=== PATIENT | male | born 1940 | race Caucasian/White ===

== ENCOUNTER 2016-08-28 09:13 | Day surgery (SDC) | payer MEDICARE ==
[~2016-08-28] VITALS: Ht 180.3 cm; Wt 84.0 kg
[~2016-08-28 09:13] MED LIST: ATOR80TA73 PO; FLUT16SP NSEACH; LACTATED RINGERS 1,000 ML IV SCH; MELO15TA14 PO; METH2.5T PO; SODIUM CHLORIDE FLUSH 3 ML SYR IV PRN; TRAN2TAB2 PO
--- OUTSIDE RECORDS SUMMARY | 2016-08-28 09:16 | XMS REPORT | Continuity of Care Document ---
Author Author [facility] Organization [facility] Address Unknown Phone Unavailable Care Team Providers Care Special Education Resource Room Teacher Name Role Phone ConradGrant PCP [phone] Source Comments Some departments are not documenting in the electronic medical record. If you do not see the information that you expected, contact Release of Information in the Health Information Management department at [phone] for further assistance in locating additional records.[facility] Active Allergies and Adverse Reactions No Known Allergies Current Medications Prescription Sig. Disp. Refills Start End Date Status Date FOLIC ACID PO Take by mouth. Active meloxicam (MOBIC) 15 mg Take 15 mg by mouth Active tablet Daily. trandolapril (MAVIK) 2 mg Take 2 mg by mouth Daily. Active tablet hydrochlorothiazide Take 12.5 mg by mouth Active (HYDRODIURIL) 12.5 mg Daily. capsule pravastatin (PRAVACHOL) Take 80 mg by mouth Active 80 mg tablet Daily. moxifloxacin (VIGAMOX) Place 1 Drop into or Active 0.5 % ophthalmic solution around eye(s) Three Times Daily. prednisoLONE phosphate Place 1 Drop into or Active (INFLAMASE FORTE) 1 % around eye(s) Four Times ophthalmic solution Daily. tobramycin Apply 0.5 Inches to Active 0.3%/dexamethasone 0.1% affected area Three Times (TOBRADEX) 0.3/0.1 % Daily. ophthalmic ointment predniSONE (DELTASONE) 10 Take 10 mg by mouth Active mg tablet Daily. travoprost,+, (TRAVATAN) Apply 1 Drop to both eyes Active 0.004 % ophthalmic At Bedtime Daily. solution Active Problems Not on file Social History Tobacco Use Types Packs/Day Years Used Date Never Smoker Alcohol Use Drinks/Week oz/Week Comments No Last Filed Vital Signs Vital Sign Reading Time Taken Blood Pressure 164/112 09/11/2009 1:00 PM CDT Pulse 87 09/11/2009 1:00 PM CDT Temperature 36.4 C (97.5 F) 09/11/2009 1:00 PM CDT Respiratory Rate - - Height 1.803 m (5' 11") 09/11/2009 1:00 PM CDT Weight 87.091 kg (192 lb) 09/11/2009 1:00 PM CDT Body Mass Index 26.79 09/11/2009 1:00 PM CDT Oxygen Saturation 97% 09/11/2009 1:00 PM CDT Plan of Care Health Maintenance Due Date Last Done Comments Physical (Comprehensive) 1947 Exam Pertussis Vaccine 1953 Tetanus Vaccine 1959 Colorectal Cancer 1992 Screening Shingles Vaccine 2002 Prevnar/Pneumovax (#1) 2007 Influenza Vaccine 01/31/2017 Results from Last 3 Months Not on file
[2016-08-28 09:26] VITALS: BP 131/94
[2016-08-28] MEDS ORDERED: MIDAZOLAM 2 MG/2 ML (VERSED) VIAL ONE (10:30)
[2016-08-28] MEDS ORDERED: PROPOFOL 20 ML IV ONE (10:30)
[2016-08-28] MEDS ORDERED: ALFENTANIL 500 MCG/ML (ALFENTA) 5 ML AMP IV ONE ×2 (10:31)
[2016-08-28] MEDS ORDERED: FLUMAZENIL (ROMAZICON) 0.1 MG/ML 5 ML VIAL ONE (11:36)
[2016-08-28] MEDS ORDERED: NALOXONE 0.4 MG/ML (NARCAN) 1 ML VIAL ONE (11:36)
[2016-08-28 11:44] VITALS: BP 135/84
[2016-08-28 12:02] VITALS: BP 145/82
--- NOTE | 2016-08-28 14:45 | OPERATIVE REPORT ---
DATE OF OPERATION: 08/28/2016 PRE-OPERATIVE DIAGNOSIS: Screening colonoscopy. POST-OPERATIVE DIAGNOSIS: Sigmoid diverticulosis. OPERATIVE PROCEDURE: Total colonoscopy. SURGEON: Neeraj Briceno M.D. ANESTHESIA: Monitored anesthesia care. FINDINGS: 1. The bowel prep was good. 2. No neoplasia, angiodysplasia, or inflammation were seen. 3. There were a few scattered diverticula seen in the sigmoid colon. INDICATIONS: Mr. Huffman is a 76-year-old referred by Dr. Martines for colonoscopy screening. He presents today for this procedure. DESCRIPTION OF THE PROCEDURE: The patient was informed of the risks and benefits and agreed to proceed. He was placed in the left lateral decubitus position and administered IV sedation. When properly sedated a rectal exam was performed, which was normal. The lighted endoscope was passed into the rectum and slowly advanced along the colon to the cecum. The ileocecal valve and the appendiceal orifice were easily seen. The scope was slowly brought back through the ascending, transverse, descending, and sigmoid colon. No polyps or inflammation were seen. There were a few diverticula seen distally. The rectum appeared normal on regular view and retroflexion. The scope was removed completing the procedure. The patient tolerated the procedure without complications.
== END 2016-08-28 12:16 | disposition home or self-care (01) ==
LOC: ASC 09:13
PROVIDERS: ATTEND Surgery
DX: Z12.11 Encounter for screening for malignant neoplasm of colon (principal); K57.30 Diverticulosis of large intestine without perforation or abscess without bleeding; I10 Essential (primary) hypertension
CPT/HCPCS: G0121; J2250; J2310; J3490; J7120